=== PATIENT | female | born 1965 | race Two or more races ===

== ENCOUNTER 2022-01-05 11:33 | Outpatient (CLI) | payer OTHER | END 2022-01-05 23:59 | disposition home or self-care (01) | LOC: LAB 11:33 | PROVIDERS: ATTEND Specialist | DX: Z01.812 Encounter for preprocedural laboratory examination (principal); Z20.822 Contact with and (suspected) exposure to COVID-19 | CPT/HCPCS: U0003; C9803 ==

== ENCOUNTER 2022-01-15 13:57 | Outpatient (CLI) | payer OTHER | END 2022-01-15 23:59 | disposition home or self-care (01) | LOC: LAB 13:57 | PROVIDERS: ATTEND Specialist | DX: Z01.812 Encounter for preprocedural laboratory examination (principal); Z20.822 Contact with and (suspected) exposure to COVID-19 | CPT/HCPCS: U0003; C9803 ==

== ENCOUNTER 2022-01-22 06:06 | Day surgery (SDC) | payer OTHER ==
[~2022-01-22 06:06] MED LIST: ANESTHESIA TRAY IN PYXIS 1 EA TRAY MC ONE
[2022-01-22] MEDS ORDERED: BUPIVACAINE 0.5 % PF 150 MG/30 ML VIAL ONE (06:16)
[2022-01-22] MEDS ORDERED: LIDOCAINE 1% INJ 50 ML MDV IJ ONE (06:17)
[2022-01-22] MEDS ORDERED: MIDAZOLAM HCL 2 MG/2ML VIAL ONE (06:55)
[2022-01-22] MEDS ORDERED: HYDROCODONE/APAP 5/325MG TABLET PO PRN ×2 (10:00)
== END 2022-01-22 09:26 | disposition home or self-care (01) ==
LOC: DS 06:06 → UNDOADMIN 06:09 → MED 06:09 → DS 09:26 → MED 09:26 → UNDODISIN 09:26
PROVIDERS: ATTEND Specialist
DX: G56.01 Carpal tunnel syndrome, right upper limb (principal); I10 Essential (primary) hypertension; J45.909 Unspecified asthma, uncomplicated; Z98.890 Other specified postprocedural states; Z79.899 Other long term (current) drug therapy
CPT/HCPCS: 64721; J0690; J3490 ×2; J1100; J2704; J1885; J2405; J7030; J2250; A6402; G0378